=== PATIENT | female | born 1965 | race Caucasian/White ===

== ENCOUNTER → 2018-07-11 | Outpatient (REF) | payer BC ==
[~2018-07-11] MED LIST: ALBU17IN INH; ALLE180T33 PO; CYCL10TA PO; EFFE150C2 PO; EVIS1TAB PO; IBUP-1022 PO; NASA55AE; NEXI40CA PO; QVAR80AE10 INH; RECL5INJ2 IV; SALMDISK INH; SING10TA32 PO; TRAM50TA2 PO; VICO5TAB17 PO; VITA10002 PO; VITA200016 PO
== END ==
LOC: M LAB LCGH 14:52
PROVIDERS: ATTEND Physician Assistant
DX: L82.0 Inflamed seborrheic keratosis (principal); L30.8 Other specified dermatitis

== ENCOUNTER → 2024-02-22 | Outpatient (CLI) | payer BC ==
[~2024-02-22] MED LIST changes: +CYAN100049 PO; +CYCL-707 PO; -CYCL10TA PO; -EFFE150C2 PO; +EFFE150C3 PO; +MONT-5 PO; -SING10TA32 PO; -VITA10002 PO
== END ==
LOC: M PLARAD 13:22
PROVIDERS: ATTEND Nurse Practitioner
DX: M54.10 Radiculopathy, site unspecified (principal); M54.42 Lumbago with sciatica, left side; M54.41 Lumbago with sciatica, right side; G89.29 Other chronic pain